=== PATIENT | female | born 1960 | race Caucasian/White ===

== ENCOUNTER → 2020-10-27 | Outpatient (CLI) | payer OTHER | LOC: MAMO 09:38 | DX: Z12.31 Encounter for screening mammogram for malignant neoplasm of breast (principal) | CPT/HCPCS: 77063; 77067 ==

== ENCOUNTER 2020-11-11 22:31 | Emergency (ER) | payer OTHER ==
[~2020-11-11] VITALS: Ht 167.6 cm; Wt 68.0 kg
[2020-11-12] MEDS ORDERED: DECADRON6 MG PO (04:38)
[2020-11-12] MEDS ORDERED: VENTOLIN HFA 66.7 GM INH (04:38)
[2020-11-12] MEDS ORDERED: LODINE CAP 300300 MG PO (04:38)
== END 2020-11-12 06:00 | disposition home or self-care (01) ==
LOC: ER1 22:31
DX: Z23 Encounter for immunization (principal); U07.1 COVID-19; E11.9 Type 2 diabetes mellitus without complications; Z88.5 Allergy status to narcotic agent
CPT/HCPCS: 99283; M0243

== ENCOUNTER 2021-06-21 19:36 | Emergency (ER) | payer OTHER ==
[~2021-06-21 19:36] MED LIST: DECADRON6 MG PO; LODINE CAP 300300 MG PO; VENTOLIN HFA 66.7 GM INH
[2021-06-21 20:50] LABS: HEMOGLOBIN 13.2 gm/dl (12.3-15.3); RED BLOOD COUNT 4.41 M/UL (4.00-5.10); WHITE BLOOD COUNT 7.1 K/UL (4.5-11.0)
[2021-06-21 21:15] LABS: BUN/CREATININE RATIO 19 (0-10)
[2021-06-22] MEDS ORDERED: AMOX TR-K CLV1 EAC4 PO (01:31)
== END 2021-06-22 01:50 | disposition home or self-care (01) ==
LOC: ER1 19:36
PROVIDERS: Family Medicine
DX: L03.115 Cellulitis of right lower limb (principal); E11.9 Type 2 diabetes mellitus without complications; Z79.84 Long term (current) use of oral hypoglycemic drugs
CPT/HCPCS: 10060; 73630; 80053; 82962; 85025; 87040; 87070; 87205; 96374; 99283